=== PATIENT | female | born 1985 | race African-American/Black ===

== ENCOUNTER 2021-10-23 10:16 | Emergency (ER) | payer OTHER, SELFPAY ==
[2021-10-23 10:31] VITALS: BP 143/84; PULSE 95; RESP 16; TEMP 37.4; O2SAT 100
--- NOTE | 2021-10-23 11:06 | ED.URI ---
HPI - URI/Sore Throat General Chief Complaint: Upper Respiratory Infection Stated Complaint: Cough, Headache Time Seen by Provider: 10/23/21 11:06 Source: patient Mode of arrival: ambulatory History of Present Illness HPI Narrative: Sheldon Barbour is a 35 yo female with no PMH who was exposed 3 days ago by her cousin to flu; she stated that the paracolic this morning while she was at work she started to feel poorly and has developing a cough and nasal congestion Related Data Allergies Allergy/AdvReac Type Severity Reaction Status Date / Time No Known Allergies Allergy Verified 10/23/21 10:30 Review of Systems Review of Systems: CONSTITUTIONAL: Denies fever, chills, sweats. EYES: Denies visual changes, redness, discharge. ENT: Denies rhinorrhea, has congestion, sore throat, otalgia. CARDIOVASCULAR: Denies chest pain, palpitations, edema. RESPIRATORY: Denies dyspnea, wheezing, has cough GASTROINTESTINAL: Denies abdominal pain, nausea, vomiting, diarrhea. GENITOURINARY: Denies dysuria, hematuria, abnormal discharge SKIN: Denies rash or itching. NEUROLOGIC: Denies numbness, or focal weakness. PSYCHIATRIC: Denies anxiety or depression. [facility] Past Medical History Medical History No acute medical problems Social History Social History (Updated 10/23/21 @ 11:08 by Kate Rowell CNP) Smoking status: Never smoker Alcohol intake: current Comments At time of signature, I agree with nursing past medical, surgical, social and family history. There is no relevant family history pertinent to the presenting complaint. Blood pressure is elevated at this visit due to symptoms from being ill Exam Narrative: GENERAL: This is a well-nourished, well-developed patient, in mild distress. HEAD: normocephalic, atraumatic. EYES: . Sclera clear/white. Vision is grossly intact. EARS: External ears normal, auditory canals erythema and without drainage, TMs normal without perforation. Hearing grossly intact. NOSE: External nose normal with nasal discharge, nares without redness, no rhinorrhea. THROAT: Mucous membranes moist, posterior pharynx erythema NECK: Neck supple, mild tender CARDIOVASCULAR: Regular rate and rhythm without murmurs, gallops, or rubs. RESPIRATORY: Clear to auscultation. Breath sounds equal bilaterally. No wheezes, rales, or rhonchi. GASTROINTESTINAL: Abdomen soft, SKIN: warm, intact with no suspicious lesions or rash, good texture and turgor. NEURO: awake, alert, and oriented to person, place and time. There were no obvious focal neurologic abnormalities. Steady gait EXTREMITIES: Normal range of motion. BACK: Nontender without deformity Course Course Emergency Course: Patient comes with a few hours of upper respiratory symptoms including cough and nasal congestion and general body aches was exposed 3 days ago to flu by a cousin Flu test is negative but very early in symptom development Patient told to stay home and rest hydrate take ibuprofen and Tylenol for pain and fever Vital Signs Vital signs: Vital Signs Temperature 99.3 F 10/23/21 10:31 Pulse Rate 95 10/23/21 10:31 Respiratory Rate 16 10/23/21 10:31 Blood Pressure 143/84 H 10/23/21 10:31 Pulse Oximetry 100 10/23/21 10:31 Temperature 99.3 F 10/23/21 10:31 Pulse Rate 95 10/23/21 10:31 Respiratory Rate 16 10/23/21 10:31 Blood Pressure 143/84 H 10/23/21 10:31 Pulse Oximetry 100 10/23/21 10:31 MDM - URI/Sore Throat Differential Diagnosis Differential diagnosis: Likely upper respiratory infection, otitis media, viral infection, bronchitis, influenza, pharyngitis and other Discharge Plan Discharge Clinical Impression: Upper respiratory infection Qualifiers: URI type: unspecified URI Qualified Code(s): J06.9 - Acute upper respiratory infection, unspecified Patient Disposition: Home, Self-Care Condition: Stable Instructions: Influenza (DC) Mik
== END 2021-10-23 11:18 | disposition home or self-care (01) ==
PROVIDERS: Emergency Provider Nurse Practitioner
DX: J06.9 Acute upper respiratory infection, unspecified (principal)
CPT/HCPCS: 99203; G0463